=== PATIENT | male | born 1995 | race Caucasian/White ===

== ENCOUNTER 2017-04-24 13:15 | Emergency (ER) | payer BC ==
[2017-04-24 14:09] LABS: ABS Basophils 0 10^3/ul (0-0.2); ABS Eosinophils 0 10^3/ul (0-0.6); ABS Lymphocytes 1.5 10^3/ul (1.0-4.8); ABS Monocytes 0.8 10^3/ul (0-0.8); ABS Neutrophils 7.1 10^3/ul (1.5-7.7); ABS Nucleated RBC 0 10^3/ul; Eosinophil % 0.5 % (0-6); Hematocrit 48 % (42-52); Hemoglobin 16.3 g/dl (14.0-18.0); Mean Corpuscular HGB Conc 34 g/dl (31-36); Mean Corpuscular Hemoglobin 29 pg (27-31); Mean Corpuscular Volume 86 fL (80-94); Mean Platelet Volume 9 um3 (7.4-10.4); Nucleated Red Blood Cells % 0; Platelet Count 174 10^3/ul (150-450); Red Blood Count 5.63 10^6/ul (4.0-5.4); Red Cell Distribution Width 13 % (10.5-15); White Blood Count 9.4 10^3/ul (3.5-10.8)
[2017-04-24 14:26] LABS: EGFR Non-African American 102.6 (>60)
[2017-04-24] MEDS ORDERED: Al Hydrox/Mg Hydrox/Simet LIQ* 30 ML UDC PO ONE (15:37)
[2017-04-24] MEDS ORDERED: Lidocaine 2% VISCOUS* 15 ML UDC PO ONE (15:37)
--- NOTE | 2017-04-24 15:59 | RAD ---
INDICATION: Painful swallowing COMPARISON: None TECHNIQUE: PA and lateral dual-energy views were obtained. FINDINGS: Bones/Soft Tissues: There are no acute bony findings. Cardiomediastinal: The cardiomediastinal silhouette is normal. Lungs: There are no infiltrates. Pleura: There are no pleural effusions. Other: None IMPRESSION: NORMAL CHEST.
--- NOTE | 2017-04-24 16:00 | RAD ---
INDICATION: Neck pain COMPARISON: None TECHNIQUE: 2 views the neck with soft tissue technique are submitted FINDINGS: The soft tissue elements about the neck to include the epiglottis are normal. The airways widely patent. The osseous structures are normal. IMPRESSION: NORMAL STUDY.
--- NOTE | 2017-04-24 17:52 | RAD ---
INDICATION: Pill stuck in esophagus. Evaluate for perforation COMPARISON: None TECHNIQUE: Noncontrast axial images were acquired to evaluate for perforation/free air. The noncontrast examination is sensitive for this would not for other pathology to include lymphadenopathy. Coronal and sagittal reconstructed images were acquired. FINDINGS: Brain and skull base: There are no CT abnormalities of the visualized brain or skull base. The mastoid air cells are well aerated. Salivary glands: The major salivary glands appear normal. Paranasal sinuses: The paranasal sinuses are clear. Nasopharynx: The nasopharynx and nasal cavity appear normal. Oropharynx: The oral, and oropharynx appear normal. Larynx: There are no laryngeal abnormalities. Thyroid: The thyroid appears normal. Lymph nodes: There is no lymphadenopathy by size criteria. Trachea/esophagus: There are no abnormalities of the trachea or visualized esophagus. The visualized lung apices are clear.. Vessels:The vessels appear normal. Bones and soft tissues:The remaining soft tissue elements of the neck are normal. There are no acute bony findings. Other: None IMPRESSION: NEGATIVE NONCONTRAST EXAMINATION
--- NOTE | 2017-04-24 17:53 | RAD ---
INDICATION: Esophageal pain. Evaluate for pneumomediastinum COMPARISON: None TECHNIQUE: Noncontrast axial source images were obtained from the thoracic inlet to the hemidiaphragms. Coronal and sagittal reconstructed images were acquired. The visualized neck to include the thyroid appear normal. Chest wall: There are no acute abnormalities of the bony thorax or chest wall. There is no supraclavicular, infraclavicular, or axillary lymphadenopathy. Lungs : There are no pulmonary parenchymal masses or infiltrates. The pulmonary interstitium appears normal. There are no endobronchial lesions. Cardiomediastinal structures: The heart is normal in size. There is no pericardial effusion. There is no evidence of aortic aneurysm or dissection. The pulmonary vessels appear grossly normal. There is no evidence of pneumomediastinum. There is no mediastinal or hilar adenopathy. Evaluation for adenopathy is limited due to lack of intervenous contrast. The esophagus appears normal. Pleura : There are no pleural-based masses or effusions. Other: There are no acute or significant CT findings of the visualized upper abdomen. IMPRESSION: NO SPECIFIC CT ABNORMALITIES. NO EVIDENCE OF PNEUMOMEDIASTINUM.
[2017-04-24 18:48] VITALS: BP 131/76
--- NOTE | 2017-04-26 22:46 | ED ---
Eyal Akhtar Jennifer, scribed for Chinedu Wright MD on 04/24/17 at 1443 . HPI Chest Pain - HPI Summary HPI Summary: The patient is a 21 year old male who presents with chest pain that began three days ago. The patient explains that three days ago, he was taking his vitamins, L-arginine and conjugated linoleic acid, when it felt like it got stuck in his throat. He went to the gym when the chest pain began. The patient describes the pain as a chronic heart burn that shoots to his back and between his shoulder blades when he swallows. He hasnt eaten since 18:00 yesterday because swallowing, eating, and drinking exacerbates the pain. He adds that breathing is uncomfortable. The patient denies fevers, sweats, chills, and vomiting. He additionally complains of throat pain and some coughs. - History of Current Complaint Chief Complaint: EDChestPainROMI Time Seen by Provider: 04/24/17 13:31 Hx Obtained From: Patient Onset/Duration: Started Days Ago - three days ago, Still Present, Worse Since Timing: Constant Initial Severity: Moderate Current Severity: Moderate Pain Intensity: 7 Pain Scale Used: 0-10 Numeric Chest Pain Location: Mid Sternal Chest Pain Radiates: Yes Chest Pain Radiates To:: Back - between shoulders Character: Burning Aggravating Factor(s): Deep Breaths, Other: - Eating, drinking, swallowing Alleviating Factor(s): Nothing Associated Signs and Symptoms: Positive: Other: - Throat pain, cough. NEGATIVE: fevers, sweats, chills, vomiting - Allergy/Home Medications Allergies/Adverse Reactions: Allergies Allergy/AdvReac Type Severity Reaction Status Date / Time No Known Allergies Allergy Verified 04/24/17 14:38 Home Medications: Home Medications Cetirizine* [ZyrTEC 10 MG TAB*] 10 mg PO DAILY PRN 04/24/17 [History Confirmed 04/24/17] PMH/Surg Hx/FS Hx/Imm Hx Endocrine/Hematology History: Denies: Hx Diabetes Cardiovascular History: Denies: Hx Hypertension Infectious Disease History: No Infectious Disease History: Denies: Traveled Outside the [place] in Last 30 Days - Family History Known Family History: Positive: Hypertension - Mother Negative: Diabetes - Social History Alcohol Use: Weekly Substance Use Type: Reports: Marijuana Smoking Status (MU): Never Smoked Tobacco Review of Systems Negative: Fever, Chills, Skin Diaphoresis Negative: Erythema Positive: Sore Throat Positive: Chest Pain - Radiatres to back and between shoulder blades Positive: Cough. Negative: Shortness Of Breath Negative: Abdominal Pain, Vomiting, Nausea Negative: dysuria, hematuria Negative: Myalgia, Edema Negative: Rash Neurological: Negative - Dizziness All Other Systems Reviewed And Are Negative: Yes Physical Exam - Summary Physical Exam Summary: Constitutional: Well-developed, Well nourished, Alert. (-) Distressed Skin: Warm, Dry HENT: Normocephalic; Atraumatic Eyes: Conjunctiva normal Neck: Musculoskeletal ROM normal neck. (-) JVD, (-) Stridor, (-) Tracheal deviation Cardio: Rhythm regular, rate normal, Heart sounds normal; Intact distal pulses; The pedal pulses are 2+ and symmetric. Radial pulses are 2+ and symmetric. (-) Murmur Pulmonary/Chest wall: Effort normal. (-) Respiratory distress, (-) Wheezes, (-) Rales Abd: Soft, (-) Tenderness, (-) Distension, (-) Guarding, (-) Rebound Musculoskeletal: (-) Edema Lymph: (-) Cervical adenopathy Neuro: Alert, Oriented x3 Psych: Mood and affect Normal Triage Information Reviewed: Yes Vital Signs On Initial Exam: Initial Vitals Temp Pulse Resp BP Pulse Ox 98.4 F 67 18 140/91 98 04/24/17 13:23 04/24/17 13:23 04/24/17 13:23 04/24/17 13:23 04/24/17 13:23 Vital Signs Reviewed: Yes Diagnostics - Vital Signs Vital Signs Temp Pulse Resp BP Pulse Ox 04/24/17 14:38 67 18 98 04/24/17 13:23 98.4 F 67 18 140/91 98 - Laboratory Lab Results: Lab Results 04/24/17 04/24/17 04/24/17 Range/Units 13:54 13:54 13:54 WBC 9.4 (3.5-10.8) 10^3/ul RBC 5.63 H (4.0-5.4) 10^6/ul Hgb 16.3 (14.0-18.0) g/dl Hct 48 (42-52) % MCV 86 (80-94) fL MCH 29 (27-31) pg MCHC 34 (31-36) g/dl RDW 13 (10.5-15) % Plt Count 174 (150-450) 10^3/ul MPV 9 (7.4-10.4) um3 Neut % (Auto) 75.2 (38-83) % Lymph % (Auto) 16.0 L (25-47) % [place] % (Auto) 8.0 (1-9) % Eos % (Auto) 0.5 (0-6) % Baso % (Auto) 0.3 (0-2) % Absolute Neuts (auto) 7.1 (1.5-7.7) 10^3/ul Absolute Lymphs (auto) 1.5 (1.0-4.8) 10^3/ul Absolute Monos (auto) 0.8 (0-0.8) 10^3/ul Absolute Eos (auto) 0 (0-0.6) 10^3/ul Absolute Basos (auto) 0 (0-0.2) 10^3/ul Absolute Nucleated RBC 0 10^3/ul Nucleated RBC % 0 Sodium 136 (133-145) mmol/L Potassium 4.1 (3.5-5.0) mmol/L Chloride 102 (101-111) mmol/L Carbon Dioxide 26 (22-32) mmol/L Anion Gap 8 (2-11) mmol/L BUN 9 (6-24) mg/dL Creatinine 0.93 (0.67-1.17) mg/dL Est GFR ( Amer) 131.9 (>60) Est GFR (Non-Af Amer) 102.6 (>60) BUN/Creatinine Ratio 9.7 (8-20) Glucose 85 (70-100) mg/dL Lactic Acid 1.1 (0.5-2.0) mmol/L Calcium 9.7 (8.6-10.3) mg/dL Total Bilirubin 0.70 (0.2-1.0) mg/dL AST 24 (13-39) U/L ALT 22 (7-52) U/L Alkaline Phosphatase 92 (34-104) U/L Troponin I 0.00 (<0.04) ng/mL Total Protein 7.9 (6.4-8.9) g/dL Albumin 4.7 (3.2-5.2) g/dL Globulin 3.2 (2-4) g/dL Albumin/Globulin Ratio 1.5 (1-3) Result Diagrams: 04/24/17 13:54 04/24/17 13:54 Lab Statement: Any lab studies that have been ordered have been reviewed, and results considered in the medical decision making process. - Radiology CXR Xray Interpretation: No Acute Changes - NORMAL CHEST. Dr. Wright has reviewed this report. Radiology Interpretation Completed By: Radiologist Soft Tissue Neck XR Xray Interpretation: No Acute Changes - NORMAL STUDY. Dr. Wright has reviewed this report. Radiology Interpretation Completed By: Radiologist - CT Neck CT CT Interpretation: No Acute Changes - NEGATIVE NONCONTRAST EXAMINATION. Dr. Wright has reviewed this report. CT Interpretation Completed By: Radiologist Chest CT CT Interpretation: No Acute Changes - NO SPECIFIC CT ABNORMALITIES. NO EVIDENCE OF PNEUMOMEDIASTINUM. Dr. Wright has reviewed this report. CT Interpretation Completed By: Radiologist - EKG 13:25 EKG Rhythm: Sinus Rhythm - 73 BPM EKG Interpretation: Occasional MVCs Chest Pain Course/Dx - Course Assessment/Plan: The patient is a 21 year old male who presents with chest pain that began three days ago. This occurred after he was taking vitamins L- arginine and conjugated linoleic acid, when it felt like one had gotten stuck in his throat. In the ED course the patient was given Lidocaine and Maalox. CXR , EKG, soft tissue neck X-ray, Neck CT, and Chest CT were obtained. The CTs were negative for perforations. The patient is diagnosed with pill esophagitis. He is instructed to follow up with Dr. Barber, gastroenterology, in three days. The patient is prescribed Omeprazole and viscous Lidocaine. - Diagnoses Provider Diagnoses: Pill esophagitis - Provider Notifications Discussed Care Of Patient With: Elvis Barber Time Discussed With Above Provider: 16:31 Instructed by Provider To: Other - Dr. Barber, electrical electronics engineers, recommends that the patient can either be admitted to [facility] [place] for an endoscopy tomorrow or go home and be seen in the office on in three days for an endoscopy Discharge - Discharge Plan Condition: Stable Disposition: HOME Prescriptions: Omeprazole CAP* [Prilosec CAP* 20 MG] 20 mg PO DAILY #14 cap. Patient Education Materials: Esophagitis (ED), Full Liquid Diet (DC) Referrals: Elvis Barber MD [Medical Doctor] - 3 Days Additional Instructions: Follow up with Dr. Barber, gastroenterology, in three days. Return to the emergency department for any new or worsening symptoms. The documentation as recorded by the Eyal flores Jennifer accurately reflects the service I personally performed and the decisions made by , Chinedu Wright MD.
== END 2017-04-24 18:48 | disposition home or self-care (01) ==
LOC: ED 13:15
DX: K20.9 Esophagitis, unspecified (principal); R07.9 Chest pain, unspecified
CPT/HCPCS: 36415; 70360; 70490; 71046; 71250; 80053; 83605; 84484; 85025; 93005; 99283; A9270-GY